=== PATIENT | female | born 2000 | race Caucasian/White ===

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

== ENCOUNTER 2019-01-05 04:17 | Inpatient (IN) | payer BC, MEDICAID ==
[~2019-01-05] VITALS: Ht 142.2 cm; Wt 33.2 kg
[~2019-01-05 04:17] MED LIST changes: -ACET160O41 GTB; +ALBU2.5V3 NEB; -DIAZ1KIT3 PR; +DIAZ1KIT4 RC; -DOCU50CA4 GTB; -DOXY50SY PO; +LEVE100S GTB; -LEVE500S9 GTB; +LEVO500T10 PO; -LEVO500T72 PO; -MONT10TA21 GTB; +MONT10TA24 PO; +NEOMYCIN PO; -POLY17PO6 PO; +PYRI250T GTB; -PYRI50TA80 GTB; -RANI15SY GTB; +RANITIDINE 75 MG/5 ML GTB; -RTPRO5 IH; +[UNRECOGNIZED DRUG - OTHER] RECTAL
[2019-01-05] MEDS ORDERED: AZITHROMYCIN 500MG/NS (PMX) 250 ML IV STA (04:39)
[2019-01-05] MEDS ORDERED: CEFTRIAXONE 1 GM/50 ML (PMX) 50 ML IVPB STA (04:39)
[2019-01-05] MEDS ORDERED: SODIUM CHLORIDE 0.9% 1L BAG IV* STA (04:39)
[2019-01-05] MEDS ORDERED: ALBUTEROL 0.083% (NEB) 2.5 MG/3 ML AMP NEB STA (04:42)
[2019-01-05] MEDS ORDERED: ACETAMINOPHEN 650MG/20.3ML CUP PO ONE (05:00)
[2019-01-05] MEDS ORDERED: CLIN60LO7 TOPICAL (05:43)
[2019-01-05] MEDS ORDERED: PHEN-716 GTB (05:43)
[2019-01-05] MEDS ORDERED: SOD CHLORIDE 0.9% 1,000 ML IV SCH (06:47)
--- NOTE | 2019-01-05 06:59 | ERD ---
ER Documentation Chief Complaint Chief Complaint RESP DISTRESS X'S 2 HRS HPI This is a 18-year-old female with a history of developmental delay, recurrent pneumonia with possible aspiration events who presents to the emergency room w ith cough congestion shortness of breath and fever. The symptoms have been worse over the past 24 hours but much worse over the past 2-3 hours. The patient arrives with some increased work of breathing and cough. History is mostly provided by mother. 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 ROS All systems reviewed and are negative except as per history of present illness. Medications Home Meds Active Scripts Levofloxacin* (Levofloxacin*) 500 Mg Tablet, 500 MG PO DAILY for 5 Days, TAB Prov:TERENCE MARTINEZ 03/11/17 Reported Medications Phenazopyridine Hcl* (Phenazopyridine Hcl*) 100 Mg Tablet, 100 MG GTB GIVE ONE TABLET PER G-TUBE TWICE DAILY 01/05/19 Clindamycin* Topical (Clindamycin* Topical) 1% - 60 Ml Lotion, 60 ML TOPICAL BID APPLY TO HAIR BUMP TWICE DAILY 01/05/19 [Neomycin 100MG/Ml ] No Conflict Check, 60 MG PO BID TAKE Q8 AM & Q8 PM 03/09/17 [Ranitidine 75MG/5ML] No Conflict Check, 3 ML GTB QAM 03/09/17 Pyridoxine Hcl* (Pyridoxine Hcl*) 250 Mg Tablet, 100 MG GTB BID, TAB 03/09/17 Oxcarbazepine* (Oxcarbazepine* Liq) 300 Mg/5 Ml Oral.susp, 5 ML GTB BID, ML 03/09/17 Montelukast Sodium* (Montelukast Sodium*) 10 Mg Tablet, 10 MG PO DAILY, #30 TAB 03/09/17 Levetiracetam (LEVETIRACETAM) 100 Mg/1 Ml Solution, 4 ML GTB BID, ML 03/09/17 Fluticasone Propionate* (Flovent* HFA 110) 12 Gm Inha, 1 PUFF INHALATION BID, #1 INHALER 03/09/17 [Diastat Re] No Conflict Check, 7.5 MG RECTAL NEEDED 03/09/17 Diazepam (Diastat Acudial) 1 Each Kit, 1 EACH RC NEEDED, KIT 03/09/17 Albuterol Sulfate* (Albuterol Sulfate* Neb) 0.083%-3 Ml Neb, 2.5 MG NEB Q4H, #30 VIAL 03/09/17 Allergies Allergies: Coded Allergies: hydromorphone (Verified Allergy, Mild, 03/09/17) ibuprofen (Verified Allergy, Mild, 03/09/17) metoclopramide (Verified Allergy, Mild, 03/09/17) amoxicillin (Verified Allergy, Unknown, 03/09/17) clavulanic acid (Verified Allergy, Unknown, 03/09/17) glycopyrrolate (Verified Allergy, Unknown, 03/09/17) oxybutynin chloride (Verified Allergy, Unknown, 03/09/17) phenytoin (Verified Allergy, Unknown, 03/09/17) latex (Verified Adverse Reaction, Unknown, 03/09/17) PMhx/Soc History of Surgery: No (unable) Hx Neurological Disorder: Yes (scoliosis spina bifida aspiration) Hx Respiratory Disorders: Yes (CHRONIC LUNG DISEASE ASTHMA) Hx Cardiac Disorders: Yes Hx Psychiatric Problems: No Hx Miscellaneous Medical Probl: Yes Hx Alcohol Use: No Hx Substance Use: No Hx Tobacco Use: No Smoking Status: Never smoker FmHx Family History: No diabetes Physical Exam Vitals Vital Signs Date Temp Pulse Resp B/P (MAP) Pulse Ox O2 O2 Flow FiO2 Time Delivery Rate 01/05/19 101.8 110 20 95/65 (75) 100 Room Air 05:58 01/05/19 Nasal 05:32 Cannula 01/05/19 140 20 100 21 05:10 01/05/19 101.8 130 20 94 04:22 Physical Exam General: Well developed, well nourished, no acute distress Head: Normocephalic, atraumatic. Eyes: Pupils equally reactive, EOM intact ENT: Moist mucous membranes Neck: Supple, no lymphadenopathy Respiratory: Rhonchi bilaterally left greater than right with slight tachypnea but no significant work of breathing Cardiovascular: Tachycardia, no murmurs, rubs, or gallops Abdominal: Soft, non-tender, non-distended, no peritoneal signs : Deferred MSK: No edema, no unilateral swelling Neurologic: Moving all extremities at neurologic baseline Skin: No rash Psych: Normal mood Result Diagram: 01/05/19 0506 01/05/19 0506 Results 24 hrs Laboratory Tests Test 01/05/19 05:06 White Blood Count 9.0 10^3/ul Red Blood Count 4.34 10^6/ul Hemoglobin 13.4 g/dl Hematocrit 40.5 % Mean Corpuscular Volume 93.3 fl Mean Corpuscular Hemoglobin 30.9 pg Mean Corpuscular Hemoglobin Concent 33.1 g/dl Red Cell Distribution Width 12.9 % Platelet Count 141 10^3/UL Mean Platelet Volume 12.6 fl Immature Granulocytes % 0.400 % Neutrophils % 79.7 % Lymphocytes % 9.4 % Monocytes % 8.7 % Eosinophils % 1.0 % Basophils % 0.8 % Nucleated Red Blood Cells % 0.0 /100WBC Immature Granulocytes # 0.040 10^3/ul Neutrophils # 7.2 10^3/ul Lymphocytes # 0.9 10^3/ul Monocytes # 0.8 10^3/ul Eosinophils # 0.1 10^3/ul Basophils # 0.1 10^3/ul Nucleated Red Blood Cells # 0.0 10^3/ul Sodium Level 138 mmol/L Potassium Level 4.6 mmol/L Chloride Level 101 mmol/L Carbon Dioxide Level 22 mmol/L Anion Gap 15 Blood Urea Nitrogen 8 mg/dl Creatinine 0.61 mg/dl Est Glomerular Filtrat Rate mL/min > 60 mL/min Glucose Level 90 mg/dl Lactic Acid Level 4.8 mmol/L Calcium Level 9.9 mg/dl Current Medications Medications Dose Sig/Jolie Start Time Status Last (Trade) Ordered Route PRN Stop Time Admin Dose Reason Admin Sodium 1,010 ml BOLUS OVER 2 01/05/19 DC 01/05/19 Chloride HOURS STAT 04:39 05:29 (NS) IV* 01/05/19 04:42 Ceftriaxone 50 ml @ ONCE STAT 01/05/19 DC 01/05/19 Sodium 100 mls/hr IVPB 04:39 05:29 01/05/19 05:08 Azithromycin 250 ml @ ONCE STAT 01/05/19 DC 01/05/19 250 mls/hr IV 04:39 04:39 01/05/19 05:38 650 mg ONCE ONCE 01/05/19 DC 01/05/19 Acetaminophen PO 05:00 05:29 (Tylenol 01/05/19 05:01 Liquid) Albuterol 2.5 mg ONCE STAT 01/05/19 DC (Proventil NEB 04:42 0.083% (Neb)) 01/05/19 04:43 Ondansetron 4 mg ER BRIDGE 01/05/19 HCl (Zofran PRN IV 07:00 Inj) NAUSEA/VOMITI 01/06/19 06:59 NG 650 mg ER BRIDGE 01/05/19 Acetaminophen PRN PO 07:00 (Tylenol .MILD PAIN 01/06/19 06:59 Tab) 1-3 OR TEMP Albuterol 2.5 mg Q4H NEB 01/05/19 UNV (Proventil 07:00 0.083% (Neb)) 400 mg BID GTB 01/05/19 UNV Levetiracetam 09:00 (Keppra Liq (Nicu)) Montelukast 10 mg DAILY PO 01/05/19 UNV Sodium 09:00 (Singulair) 300 mg BID GTB 01/05/19 UNV Oxcarbazepine 09:00 (Trileptal Susp (Ped)) Pyridoxine 100 mg BID GTB 01/05/19 UNV HCl 09:00 (Vitamin B6) 60 ml BID 01/05/19 UNV Miscellaneous TOPICAL 09:00 Information 1 each NEEDED 01/05/19 UNV Miscellaneous RC 07:00 Information 1 puff BID 01/05/19 UNV Miscellaneous INHALATION 09:00 Information 7.5 mg NEEDED 01/05/19 UNV Miscellaneous RECTAL 07:00 Information 60 mg BID PO 01/05/19 UNV Miscellaneous 09:00 Information 3 ml QAM GTB 01/05/19 UNV Miscellaneous 09:00 Information Sodium 1,000 ml @ [id number] IV 01/05/19 UNV Chloride 80 mls/hr 06:47 01/05/19 19:16 IV Flush 3 ml PER 01/05/19 UNV (NS 3 ml) PROTOCOL IV 07:00 Ondansetron 4 mg Q6H PRN 01/05/19 UNV HCl (Zofran IV 07:00 Inj) NAUSEA/VOMITI NG 650 mg Q6H PRN 01/05/19 UNV Acetaminophen PO .PAIN 1-3 07:00 (Tylenol OR TEMP Tab) Ceftriaxone 50 ml @ Q24H IVPB 01/06/19 UNV Sodium 100 mls/hr 04:00 Azithromycin 250 ml @ Q24H IVPB 01/06/19 UNV 250 mls/hr 04:00 Procedures/MDM EKG, MONITORS, & DIAGNOSTIC IMAGING: EKG: I reviewed and interpreted a 12-lead EKG. Rhythm: Sinus tachycardia ST Changes: No contiguous ST segment elevations T waves: No contiguous T wave inversions Impression: No evidence of acute cardiac ischemia Chest x-ray: I reviewed and interpreted a 1 view of the chest Mediastinum: No enlargement Cardiac silhouette: No cardiomegaly Airspace: Left-sided infiltrate Bones: No evidence of fracture LAB INTERPRETATION: I reviewed the laboratory testing and it shows elevated lactic acid of 4.8, normal chemistry, normal white count MEDICAL DECISION MAKING: The patient's presentation is very consistent with likely community acquired p neumonia. The patient occasionally has aspiration events, therefore aspiration pneumonitis must be considered. The patient has Sirs criteria with obvious source and a code sepsis was initiated. ER COURSE: * The patient has not been hospitalized in the last 30 days. Ceftriaxone and azithromycin provided after blood cultures. The patient was written for 30/kg bolus of saline. * Antipyretics provided * The patient's mother would like to defer nebulizer treatment at this time. The patient may require respiratory therapy intervention as well as pulmonary toilet * The patient still had a temperature. She is allergic to nonsteroidal anti- inflammatory. Other cooling techniques provided after Tylenol. * WHile the patient's lactic acid is elevated the patient seems to be responding nicely to IV fluids. She is much more calm and appropriate. Repeat lactic acid is pending. I do not believe the patient requires a central line at this time but telemetry monitoring may be appropriate given her level of lactic acid. CONSULTATION: None DISPOSITION PLAN: Accepting care team and consultations: I discussed the current laboratory data, diagnostic imaging and emergency care provided. Admitting team: Dr. Allen Admitting team indication: Insurance directed Sepsis Documentation: Patient's infectious symptoms have not stabilized and the patient is at risk of rapid decompensation. The patient will be admitted for careful hydration, antibiotic therapy, and infectious source control. SEVERE SEPSIS CRITERIA: Infectious source: Community-acquired pneumonia End organ damage indicated by: [Lactate > 2.0 mmol/L SEPSIS MANAGEMENT Time of recognition of sepsis: Upon MD assessment. Time of recognition of severe sepsis: Around 540. Time of recognition of septic shock: Around 540 3 HOUR BUNDLE Blood cultures x 2 before broad-spectrum antibiotics: Yes 30 ml/kg NS bolus pending completion Initial lactate 4.8 Repeat lactate pending repeat SEPTIC SHOCK ASSESSMENT: Patient qualifies 2/2 lactic acid > 4.0 No persistent hypotension (SBP < 90 or 40 mmHg drop, MAP < 65) despite 30 mL/kg IV fluid bolus VOLUME REASSESSMENT FOR SEPTIC SHOCK: Reevaluation Time: 7 AM Temperature of 102.0 heart rate of 122 respiratory rate 20 blood pressure 123/59 pulse ox 100% on room air Heart tachycardia but improving Lungs Rales at the left base Skin warm & dry Cap Refill less than 2 seconds Peripheral pulses radially present PERSISTENT HYPOTENSION TREATMENT: Comfort care no Central line not Required Vasopressor started not required I considered further perfusion assessment with CVP measurement, SCVO2, bedside ultrasound volume assessment, passive leg raise, trial of further fluid bolus. And proceeded with 30 ml/kg fluid bolus of NSS, broad spectrum antibiotics, and admission. CRITICAL CARE Critical care time 40 minutes Emergent fluid management while maintaining close respiratory support. Provision of immediate and broad-spectrum antibiotic therapy. Simultaneous assessment for possible sources in order to direct targeted therapy. Consideration for invasive and chemical support to prevent cardiopulmonary collapse. Critical care time is independent of procedures performed. Departure Diagnosis: Primary Impression: Severe sepsis Additional Impressions: Septic shock Community acquired pneumonia Laterality: left Lung location: lower lobe of lung Qualified Codes: J18.1 - Lobar pneumonia, unspecified organism Condition: HARDEEP Stevens MD Jan 05, 2019 06:59
[2019-01-05] MEDS ORDERED: DIAZEPAM RECTAL SCH (07:00)
[2019-01-05] MEDS ORDERED: ACETAMINOPHEN 325 MG TAB PO PRN ×2 (07:00)
[2019-01-05] MEDS ORDERED: ONDANSETRON 4 MG INJ IV PRN ×2 (07:00)
[2019-01-05] MEDS ORDERED: DIAZEPAM RC SCH (07:00)
[2019-01-05] MEDS ORDERED: NACL 0.9% 3 ML SYG IV SCH (07:00)
--- NOTE | 2019-01-05 08:53 | HP ---
Date/Time of Note Date/Time of Note DATE: 01/05/19 TIME: 08:43 Assessment/Plan VTE Prophylaxis SCD applied (from Ns): No SCD contraindicated: other (Cerebral palsy patient) Pharmacological prophylaxis: heparin Lines/Catheters IV [facility]ter [facility]from [facility] Saline Lock Assessment/Plan Problems: (1) Acute bronchitis Status: Acute Comment: The ER physician and radiology disagree on the interpretation of the chest x-ray. Regardless this patient has acute bronchitis with sepsis picture and decreased respiratory status and decreased mental function. She needs to be brought into the hospital treated aggressively with pulmonary toilet and IV antibiotic therapy. Follow her along closely. Please note I have discussed with the patient's family about whether or not advanced directive exists they indicate at this time that full resuscitative maneuvers should be undertaken Qualifiers: Bronchitis organism: unspecified organism Qualified Codes: J20.9 - Acute bronchitis, unspecified (2) Severe sepsis Status: Acute Comment: IV antibiotic therapy, cultures, full support (3) Altered level of consciousness Status: Acute Comment: Due to sepsis (4) Cerebral palsy with gross motor function classification system level IV Status: Chronic Comment: Noted. All supportive measures. Please note the patient is most comfortable her parents will be physically present in one fashion or another at all times. We will have them assist with the patient's routine to maintain a comfortable environment for the patient. 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 (6) Asthma, moderate persistent Status: Chronic Comment: Full treatment. Qualifiers: Asthma complication type: with acute exacerbation Qualified Codes: J45.41 - Moderate persistent asthma with (acute) exacerbation (7) Spina bifida Status: Chronic Comment: Noted and previously operated, nonambulatory Qualifiers: Spinal region: lumbosacral Presence of hydrocephalus: without hydrocephalus Qualified Codes: Q05.7 - Lumbar spina bifida without hydrocephalus (8) Hypoglycemia Status: Resolved Comment: Due to dumping syndrome. Patient is being treated with a schedule of feedings which are allowing her to stay out of trouble with this. An alternative we had to medically treat this would be the usage of a drug such as Acarbose. (9) S/P percutaneous endoscopic gastrostomy (PEG) tube placement Status: Chronic Comment: Noted and we will use this which is function (10) Postsurgical dumping syndrome Status: Chronic Comment: As above. Result Diagram: 01/05/19 0506 01/05/19 0506 Results 24hrs Laboratory Tests Test 01/05/19 05:06 01/05/19 06:57 White Blood Count 9.0 # Red Blood Count 4.34 Hemoglobin 13.4 Hematocrit 40.5 Mean Corpuscular Volume 93.3 Mean Corpuscular Hemoglobin 30.9 Mean Corpuscular Hemoglobin Concent 33.1 Red Cell Distribution Width 12.9 Platelet Count 141 # Mean Platelet Volume 12.6 H Immature Granulocytes % 0.400 Neutrophils % 79.7 H Lymphocytes % 9.4 L Monocytes % 8.7 Eosinophils % 1.0 Basophils % 0.8 Nucleated Red Blood Cells % 0.0 Immature Granulocytes # 0.040 H Neutrophils # 7.2 Lymphocytes # 0.9 Monocytes # 0.8 Eosinophils # 0.1 Basophils # 0.1 Nucleated Red Blood Cells # 0.0 Sodium Level 138 Potassium Level 4.6 Chloride Level 101 Carbon Dioxide Level 22 Anion Gap 15 H Blood Urea Nitrogen 8 Creatinine 0.61 Est Glomerular Filtrat Rate mL/min > 60 Glucose Level 90 Lactic Acid Level 4.8 *H 2.1 *H Calcium Level 9.9 HPI/ROS Admit Date/Time Admit Date/Time January 05, 2019 Hx of Present Illness This is 1 of several [facility] admissions for this 18-year- old right-handed single female. She has a history of cerebral palsy with severe thoracolumbar scoliosis. She also had hiatal hernia. She had corrective spinal fusion surgery using bilateral Clark rods at [facility] several years ago. In addition in the remote past she had a Kwasi fundoplication performed. She also has chronic lung disease which is treated as asthma persistent moderate. In addition she has a seizure disorder. She intermittently has gotten bronchitis which is flared up her breathing issues. She had been her usual state of health but developed a cough and was actually seen by her surfacing technician on 04 January. At that time flu swabs were negative. The patient became sicker overnight and is now brought in for treatment. The emergency room doctor read the x-ray as having a left lower lobe pneumonia however the radiologist and myself do not see that. However the patient clearly has a bronchitis, alteration of breathing, and the PICC clinical picture of sepsis. As such admission is appropriate. ROS History is obtained from the patient's parents who are extremely medically sophisticated and helpful Constitutional: no complaints (No noted fevers chills or sweats) Eyes: no complaints ENT: no complaints Respiratory: cough, shortness of breath Cardiovascular: no complaints Gastrointestinal: no complaints Genitourinary: no complaints Neurologic: other (Much less active and vibrant, no seizure activity) Endocrine: no complaints PMH/Family/Social Past Medical History Medical History: other (Cerebral palsy; thoracolumbar scoliosis status post correction, status post Kwasi fundoplication with dumping syndrome, seizure disorder, asthma persistent moderate, neurogenic bladder requiring intermittent straight cathing 3 times daily) Medications Current Medications Ondansetron HCl (Zofran Inj) 4 mg ER BRIDGE PRN IV NAUSEA/VOMITING; Start 01/05/19 at 07:00; Stop 01/06/19 at 06:59 Acetaminophen (Tylenol Tab) 650 mg ER BRIDGE PRN PO .MILD PAIN 1-3 OR TEMP; Start 01/05/19 at 07:00; Stop 01/06/19 at 06:59 Albuterol (Proventil 0.083% (Neb)) 2.5 mg Q4H RESP THERAPY NEB ; Start 01/05/19 at 09:00 Levetiracetam (Keppra Liq (Ped)) 400 mg BID GTB ; Start 01/05/19 at 09:00 Montelukast Sodium (Singulair) 10 mg DAILY PO ; Start 01/05/19 at 09:00 Oxcarbazepine (Trileptal Susp (Ped)) 300 mg BID GTB ; Start 01/05/19 at 09:00 Pyridoxine HCl (Vitamin B6) 100 mg BID GTB ; Start 01/05/19 at 09:00 Miscellaneous Information 60 ml BID TOPICAL ; Start 01/05/19 at 09:00; Status UNV Miscellaneous Information 1 each NEEDED RC ; Start 01/05/19 at 07:00; Status UNV Miscellaneous Information 1 puff BID INHALATION ; Start 01/05/19 at 09:00; St atus UNV Miscellaneous Information 7.5 mg NEEDED RECTAL ; Start 01/05/19 at 07:00; Status UNV Miscellaneous Information 60 mg BID PO ; Start 01/05/19 at 09:00; Status UNV Ranitidine HCl (Zantac Liq (Ped)) 45 mg QAM PO ; Start 01/05/19 at 09:00 Sodium Chloride 1,000 ml @ 80 mls/hr [id number] IV ; Start 01/05/19 at 06:47; Stop 01/05/19 at 19:16 IV Flush (NS 3 ml) 3 ml PER PROTOCOL IV ; Start 01/05/19 at 07:00 Ondansetron HCl (Zofran Inj) 4 mg Q6H PRN IV NAUSEA/VOMITING; Start 01/05/19 at 07:00 Acetaminophen (Tylenol Tab) 650 mg Q6H PRN PO .PAIN 1-3 OR TEMP; Start 01/05/19 at 07:00 Ceftriaxone Sodium 50 ml @ 100 mls/hr Q24H IVPB ; Start 01/06/19 at 05:00 Azithromycin 250 ml @ 250 mls/hr Q24H IVPB ; Start 01/06/19 at 05:00 Coded Allergies: hydromorphone (Verified Allergy, Mild, 03/09/17) ibuprofen (Verified Allergy, Mild, 03/09/17) metoclopramide (Verified Allergy, Mild, 03/09/17) amoxicillin (Verified Allergy, Unknown, 03/09/17) clavulanic acid (Verified Allergy, Unknown, 03/09/17) glycopyrrolate (Verified Allergy, Unknown, 03/09/17) oxybutynin chloride (Verified Allergy, Unknown, 03/09/17) phenytoin (Verified Allergy, Unknown, 03/09/17) latex (Verified Adverse Reaction, Unknown, 03/09/17) Past Surgical History Past Surgical Hx: other (Test post spinal fusion using bilateral Clark rods; status post Kwasi fundoplication) Family History Significant Family History: no pertinent family hx Social History Nonverbal nonambulatory cerebral palsy patient. Lives with her family who is extremely knowledgeable and devoted Alcohol Use: none Smoking Status: Never smoker Drug Use: none Exam/Review of Systems Vital Signs Vitals Vital Signs Date Temp Pulse Resp B/P (MAP) Pulse Ox O2 O2 Flow FiO2 Time Delivery Rate 01/05/19 102.0 122 20 123/59 100 Room Air 07:01 (80) 01/05/19 21 05:10 Exam Exam Patient is awake and watching an electronic device but much less animated than typical according to the family Head: normocephalic, atraumatic Eyes: nl conjunctiva, EOMI, nl lids, nl sclera ENMT: nl external ears & nose, nl lips & teeth, nl nasal mucosa & septum Respiratory: normal air movement, wheezing Cardiovascular: regular rate and rhythm, nl pulses Gastrointestinal: soft, nl liver, spleen, non-tender, other (EEG tube () Musculoskeletal: other (Wheelchair-bound) Extremities: normal pulses Neurological: [employer] OFFICER II-XII intact Skin: nl OTILIA Engle MD Jan 05, 2019 08:53
[2019-01-05] MEDS ORDERED: MONTELUKAST 10 MG TAB PO SCH (09:00)
[2019-01-05] MEDS ORDERED: RANITIDINE (15 MG/ML PO SYG) PO SCH (09:00)
[2019-01-05] MEDS ORDERED: MONTELUKAST 10 MG TAB PEG SCH (09:00)
[2019-01-05] MEDS ORDERED: PYRIDOXINE 50 MG TAB GTB SCH (09:00)
[2019-01-05] MEDS ORDERED: OXCARBAZEPINE SUSP 60 MG/ML (PO SYG) GTB SCH ×2 (09:00→18:00)
[2019-01-05] MEDS ORDERED: LEVETIRACETAM (100 MG/ML PO SYG) GTB SCH (09:00)
[2019-01-05] MEDS ORDERED: NEOMYCIN PO SCH (09:00)
[2019-01-05] MEDS: ALBUTEROL 0.083% (NEB) 2.5 MG/3 ML AMP NEB SCH ×4 (10:06→20:14)
[2019-01-05] MEDS: BUDESONIDE (NEB) 0.5MG/2ML AMP HHN SCH ×2 (10:07→20:00)
[2019-01-05 12:41] VITALS: PULSE 96
[2019-01-05 13:00] VITALS: BP 117/59; PULSE 87; RESP 18; Ht 142.2 cm; Wt 33.2 kg
[2019-01-05 16:01] VITALS: PULSE 102
[2019-01-05 16:06] VITALS: BP 101/69; PULSE 97; RESP 18
[2019-01-05] MEDS: MONTELUKAST 10 MG TAB PEG SCH (17:43)
[2019-01-05] MEDS: PYRIDOXINE 50 MG TAB GTB SCH (17:44)
[2019-01-05] MEDS: LEVETIRACETAM (100 MG/ML PO SYG) GTB SCH (17:47)
[2019-01-05 20:00] VITALS: BP 126/79; PULSE 94; RESP 18
[2019-01-05 20:38] VITALS: PULSE 100
[2019-01-05] MEDS: POLYMYXIN B TOP SCH (21:00)
[2019-01-05] MEDS: NEOMYCIN TOP SCH (21:00)
[2019-01-05] MEDS ORDERED: [UNRECOGNIZED DRUG - MIXTURE] IRR SCH (21:00)
[2019-01-05] MEDS: SODIUM CHLORIDE TOP SCH (21:00)
[2019-01-06] VITALS (9 sets, daily range): BP systolic 104–118; BP diastolic 56–77; PULSE 92–128; RESP 18–20
[2019-01-06] MEDS: ALBUTEROL 0.083% (NEB) 2.5 MG/3 ML AMP NEB SCH ×6 (00:42→20:18)
[2019-01-06] MEDS: CEFTRIAXONE 1 GM/50 ML (PMX) 50 ML IVPB SCH (04:29)
[2019-01-06] MEDS: AZITHROMYCIN 500MG/NS (PMX) 250 ML IVPB SCH (05:20)
[2019-01-06] MEDS: LEVETIRACETAM (100 MG/ML PO SYG) GTB SCH ×2 (06:07→18:44)
[2019-01-06] MEDS: OXCARBAZEPINE SUSP 60 MG/ML (PO SYG) PO SCH ×2 (06:38→18:51)
[2019-01-06] MEDS: BUDESONIDE (NEB) 0.5MG/2ML AMP HHN SCH ×2 (08:20→20:00)
[2019-01-06] MEDS: PYRIDOXINE 50 MG TAB GTB SCH ×2 (08:51→18:44)
[2019-01-06] MEDS ORDERED: OXCARBAZEPINE SUSP 60 MG/ML (PO SYG) PO SCH (09:00)
--- NOTE | 2019-01-06 10:43 | PN ---
Date/Time of Note Date/Time of Note DATE: 01/06/19 TIME: 10:41 Assessment/Plan VTE Prophylaxis Risk score (from [facility])>0 risk: 5 SCD applied (from [facility]): No SCD contraindicated: bilateral LE trauma Pharmacological prophylaxis: heparin Lines/Catheters IV Catheter [facility] (from [facility] Saline Lock Urinary Cath still in place: No Assessment/Plan Problems: (1) Community acquired pneumonia Status: Acute Comment: Clinically improving quite nicely. Continue treatment but it is possible that she may be able to be discharged tomorrow in improved condition. She is not quite there yet Qualifiers: Laterality: left Lung location: lower lobe of lung Qualified Codes: J18.1 - Lobar pneumonia, unspecified organism (2) Cerebral palsy with gross motor function classification system level IV Status: Chronic Comment: Stable and compensated with coordination of care between the nursing staff and the parents. (3) Asthma, moderate persistent Status: Chronic Comment: Adequate control at this time Qualifiers: Asthma complication type: with acute exacerbation Qualified Codes: J45.41 - Moderate persistent asthma with (acute) exacerbation (4) Altered level of consciousness Status: Acute Comment: Coming back to baseline nicely (5) Severe sepsis Status: Resolved Comment: Resolved with IV antibiotic therapy Result Diagram: 01/05/19 0506 01/05/19 0506 Subjective 24 Hr Interval Summary Free Text/Dictation Patient is a bit more animated and interactive. Respiratory: cough Exam/Review of Systems Exam Vitals Vital Signs Date Temp Pulse Resp B/P (MAP) Pulse Ox O2 O2 Flow FiO2 Time Delivery Rate 01/06/19 97 08:38 01/06/19 18 100 21 08:20 01/06/19 98.3 116/68 Room Air 07:42 (84) 01/06/19 10.0 06:58 Intake and Output 01/05/19 01/05/19 01/06/19 1414:59 22:59 06:59 IntakeIntake Total 420 ml OutputOutput Total 120 ml 40 ml BalanceBalance -120 ml 380 ml Exam Much more active. Using the parents description she is much closer to baseline although not quite at baseline. Constitutional: alert Respiratory: clear to auscultation, normal air movement Cardiovascular: regular rate and rhythm, nl pulses Gastrointestinal: soft, nl liver, spleen, non-tender Medications Medication Current Medications Albuterol (Proventil 0.083% (Neb)) 2.5 mg Q4H RESP THERAPY NEB Last administered on 01/06/19at 08:20; Admin Dose 2.5 MG; Start 01/05/19 at 09:00 Miscellaneous Information 60 ml BID TOPICAL ; Start 01/05/19 at 09:00; Status UNV Miscellaneous Information 1 each NEEDED RC ; Start 01/05/19 at 07:00; Status UNV Miscellaneous Information 1 puff BID INHALATION ; Start 01/05/19 at 09:00; Status UNV Miscellaneous Information 7.5 mg NEEDED RECTAL ; Start 01/05/19 at 07:00; Status UNV Miscellaneous Information 60 mg BID PO ; Start 01/05/19 at 09:00; Status UNV IV Flush (NS 3 ml) 3 ml PER PROTOCOL IV ; Start 01/05/19 at 07:00 Ondansetron HCl (Zofran Inj) 4 mg Q6H PRN IV NAUSEA/VOMITING; Start 01/05/19 at 07:00 Acetaminophen (Tylenol Tab) 650 mg Q6H PRN PO .PAIN 1-3 OR TEMP; Start 01/05/19 at 07:00 Ceftriaxone Sodium 50 ml @ 100 mls/hr Q24H IVPB Last administered on 01/06/19at 04:29; Admin Dose 100 MLS/HR; Start 01/06/19 at 05:00 Azithromycin 250 ml @ 250 mls/hr Q24H IVPB Last administered on 01/06/19at 05:20; Admin Dose 250 MLS/HR; Start 01/06/19 at 05:00; Stop 01/09/19 at 04:59 Budesonide (Pulmicort (Neb)) 0.5 mg BID RESP THERAPY HHN ; Start 01/05/19 at 09:00 Miscellaneous Information (* Miscellaneous Pharmacy Order) Neomycin 4 cc and 1 L ... ONCE XX ; Start 01/05/19 at 08:30 Levetiracetam (Keppra Liq (Ped)) 400 mg BID@0600,1800 GTB Last administered on 01/06/19at 06:07; Admin Dose 400 MG; Start 01/05/19 at 18:00 Pyridoxine HCl (Vitamin B6) 100 mg BID@0800,1800 GTB Last administered on 01/06/19at 08:51; Admin Dose 100 MG; Start 01/05/19 at 18:00 Montelukast Sodium (Singulair) 10 mg DAILY@1800 PEG Last administered on 01/05/19at 17:43; Admin Dose 10 MG; Start 01/05/19 at 18:00 Non-Formulary Medication NIGHTLY. QHS TOP ; Start 01/05/19 at 21:00 Oxcarbazepine (Trileptal Susp (Ped)) 300 mg BID PO Last administered on 01/06/19at 06:38; Admin Dose 300 MG; Start 01/06/19 at 06:30 OTILIA CASSIDY MD Jan 06, 2019 10:43
[2019-01-06] MEDS: [UNRECOGNIZED DRUG - REMARK] XX SCH ×2 (13:30→21:25)
[2019-01-06] MEDS ORDERED: MOMETASONE 0.24 GM INHALER INH SCH (14:00)
[2019-01-06] MEDS: MONTELUKAST 10 MG TAB PEG SCH (18:44)
[2019-01-06] MEDS: SODIUM CHLORIDE TOP SCH (21:00)
[2019-01-06] MEDS: NEOMYCIN TOP SCH (21:00)
[2019-01-06] MEDS: POLYMYXIN B TOP SCH (21:00)
[2019-01-06] MEDS: CLINDAMYCIN 1% 30 ML BTL TOP SCH (21:00)
[2019-01-07] VITALS: BP 107/56; PULSE 87; PULSE 88; RESP 18
[2019-01-07] MEDS: ALBUTEROL 0.083% (NEB) 2.5 MG/3 ML AMP NEB SCH ×4 (00:52→13:15)
[2019-01-07 04:00] VITALS: PULSE 70
[2019-01-07] MEDS: AZITHROMYCIN 500MG/NS (PMX) 250 ML IVPB SCH ×2 (04:54→05:00)
[2019-01-07] MEDS: CEFTRIAXONE 1 GM/50 ML (PMX) 50 ML IVPB SCH ×2 (04:54→05:00)
[2019-01-07] MEDS: [UNRECOGNIZED DRUG - REMARK] XX SCH ×2 (05:24→13:30)
[2019-01-07] MEDS ORDERED: OXCARBAZEPINE SUSP 60 MG/ML (PO SYG) PO SCH (06:00)
[2019-01-07] MEDS ORDERED: PYRIDOXINE 50 MG TAB GTB SCH (06:00)
[2019-01-07] MEDS: LEVETIRACETAM (100 MG/ML PO SYG) GTB SCH (06:06)
[2019-01-07 08:02] VITALS: PULSE 74
[2019-01-07] MEDS: BUDESONIDE (NEB) 0.5MG/2ML AMP HHN SCH (08:33)
[2019-01-07] MEDS ORDERED: AZITHROMYCIN 250 MG TAB PO SCH (09:00)
[2019-01-07] MEDS ORDERED: CEFTRIAXONE 1 GM INJ IM SCH (09:00)
[2019-01-07] MEDS: CLINDAMYCIN 1% 30 ML BTL TOP SCH (09:30)
[2019-01-07 12:02] VITALS: PULSE 65
[2019-01-07] MEDS ORDERED: AZIT200S49 PO (15:09)
[2019-01-07] MEDS ORDERED: CLIN75SO7 PO (15:09)
[2019-01-07] MEDS ORDERED: LACT1CAP57 PO (15:14)
--- NOTE | 2019-01-07 15:15 | PDOCDIS ---
Discharge Instructions CONDITION [id number] Patient Condition: [id number] Stable HOME CARE INSTRUCTIONS: [id number] Special Diet: [id number] Tube feeds FOLLOW UP/APPOINTMENTS Follow-up Plan followup with PCP in the next 1 week to ensure continued resolution of symptoms . CHELSEA GU Jan 07, 2019 15:15
--- NOTE | 2019-01-07 15:45 | DS ---
DATE OF ADMISSION: 01/05/2019 DATE OF DISCHARGE: 01/07/2019 PRESENTING COMPLAINT: A 18-year-old developmentally delayed female who was brought in by her parents because of cough, congestion, shortness of breath and fever. FINAL DIAGNOSES: She was managed as follows: 1. Respiratory tract infection likely aspiration pneumonia. - The patient has a history of frequent aspiration while being catheterized - Mother reports the patient has history of recurrent aspiration as well. - The patient is significantly improved. 2. Systemic inflammatory response syndrome secondary to #1 with lactic acidosis: Now resolved, which was present on admission. 3. Chronic cerebral palsy with Gross Motor Function Classification System level 4. 4. History of chronic asthma, stable. 5. Chronic neurogenic bladder: The patient gets intermittent catheterization 3 times a day. 6. History of repeated urinary tract infections over the years. The patient has urology as well as neurology followup. All her doctors are at [facility]. 7. Chronic seizure disorder. The patient is on Keppra. CONSULTS ON THE CASE: None. INTERVENTIONS: The patient was treated with IV fluids and antibiotic therapy. She required supplemental oxygen for a short course at time and stable on room air. HOSPITAL COURSE: Full details are available in chart for review. In summary, this is a developmentally delayed 18 yo F cared for at home by her parents. The patient was brought in with fever, shortness of breath and was treated for pneumonia with significant improvement after 2 days of antibiotics and at this time has been assessed by myself in detail and is stable for discharge home to the care of her parents. Of note, her parents are very comfortable in caring for her as well as son and are in agreement with discharge plan. DISPOSITION: To home with previous home health and respite care. ACTIVITY: As tolerated. FOLLOWUP: The patient's mother assured me they will follow up with her primary care doctor within the next week to ensure continued resolution of symptoms. DISCHARGE MEDICATIONS: For complete list of discharge medications, please review patient's chart. Time spent on discharge coordination has been more than 45 minutes. Dictated By: CHESLEA GU MD BA/NTS Conf#: [id number] DID#: [id number] CC: TERESE FIGUEROA MD;*EndCC* MTDD
== END 2019-01-07 17:40 | disposition home health service (06) | DRG 178 ==
LOC: E/R 04:17 → TEL 06:43
PROVIDERS: ADMIT Family Medicine; ATTEND Family Medicine
DX: J69.0 Pneumonitis due to inhalation of food and vomit (principal); R65.10 Systemic inflammatory response syndrome (SIRS) of non-infectious origin without acute organ dysfunction; J45.41 Moderate persistent asthma with (acute) exacerbation; J18.9 Pneumonia, unspecified organism; G80.9 Cerebral palsy, unspecified; N31.9 Neuromuscular dysfunction of bladder, unspecified; G40.909 Epilepsy, unspecified, not intractable, without status epilepticus
CPT/HCPCS: 36415; 71045; 80048; 83605; 85025; 87040; 87075; 93005; 94640; 94664; 96374; 96375; J0456; J0696; J7030